=== PATIENT | female | born 1960 | race Caucasian/White ===

== ENCOUNTER 2023-08-23 09:00 | Emergency (ER) | payer OTHER ==
[~2023-08-23] VITALS: Ht 149.9 cm; Wt 69.9 kg
[~2023-08-23 09:00] MED LIST: ALBU1.25; AMOX1TAB16; ASPI81TA49 PO; BENA40TA67 PO; HYDR1POW18 PO; INSU100V27; LORA-259 PO; METF500T PO; METO50TA7 PO
[2023-08-23] MEDS ORDERED: IBUP-1955 PO (11:09)
[2023-08-23 11:50] VITALS: BP 154/74; TEMP 98.2; O2SAT 99
== END 2023-08-23 10:55 | disposition home or self-care (01) ==
LOC: ER 09:08
DX: S63.591A Other specified sprain of right wrist, initial encounter (principal); R42 Dizziness and giddiness; I10 Essential (primary) hypertension; E11.9 Type 2 diabetes mellitus without complications; F32.A Depression, unspecified; F41.9 Anxiety disorder, unspecified; Z79.82 Long term (current) use of aspirin; Z90.49 Acquired absence of other specified parts of digestive tract; Z79.899 Other long term (current) drug therapy; W18.39XA Other fall on same level, initial encounter; Y93.89 Activity, other specified; Y92.89 Other specified places as the place of occurrence of the external cause; Y99.8 Other external cause status
CPT/HCPCS: 73110; 73130-TC

== ENCOUNTER 2024-01-15 13:31 | Emergency (ER) | payer OTHER ==
[~2024-01-15] VITALS: Ht 149.9 cm; Wt 68.5 kg
[~2024-01-15 13:31] MED LIST changes: +IBUP-1955 PO
[2024-01-15 14:30] VITALS: TEMP 98.4
[2024-01-15] MEDS ORDERED: IBUP-1955 PO (15:24)
[2024-01-15] MEDS ORDERED: CYCL5TAB PO (15:24)
[2024-01-15] MEDS ORDERED: ACET-2605 PO (15:24)
[2024-01-15] MEDS ORDERED: ACETAMINOPHEN ES 500 MG TABLET ONE (15:36)
[2024-01-15] MEDS ORDERED: LIDOCAINE 5% (PATCH) 1 EA PATCH TP ONE (15:36)
[2024-01-15] MEDS ORDERED: CYCLOBENZAPRINE 10 MG TABLET ONE (15:36)
[2024-01-15] MEDS ORDERED: IBUPROFEN 600 MG TABLET ONE (15:37)
[2024-01-15] MEDS: IBUPROFEN 600 MG TABLET PO ONE (15:45)
[2024-01-15] MEDS: ACETAMINOPHEN ES 500 MG TABLET PO ONE (15:45)
[2024-01-15] MEDS: CYCLOBENZAPRINE 10 MG TABLET PO ONE (15:45)
[2024-01-15] MEDS: LIDOCAINE 5% (PATCH) 1 EA PATCH TP ONE (15:45)
[2024-01-15 16:24] VITALS: BP 132/78; O2SAT 97
== END 2024-01-15 16:25 | disposition home or self-care (01) ==
LOC: ER 13:34
DX: M54.59 Other low back pain (principal); M79.604 Pain in right leg; I10 Essential (primary) hypertension; E11.9 Type 2 diabetes mellitus without complications; F32.A Depression, unspecified; F41.9 Anxiety disorder, unspecified; Z90.49 Acquired absence of other specified parts of digestive tract; Z86.79 Personal history of other diseases of the circulatory system

== ENCOUNTER 2024-03-02 18:54 | Emergency (ER) | payer OTHER ==
[~2024-03-02] VITALS: Ht 149.9 cm; Wt 67.6 kg
[~2024-03-02 18:54] MED LIST changes: +ACET-2605 PO; +CYCL5TAB PO
[2024-03-02 19:40] LABS: BASOPHILS % (AUTO) 0.4 % (0.0-2.0); CALCIUM, SERUM 8.4 mg/dL (8.5-10.1); CARBON DIOXIDE 25 mmol/L (21-32); CHLORIDE 104 mmol/L (98-107); CREATININE 0.6 mg/dL (0.6-1.3); EOSINOPHILS # (AUTO) 0.1 K/uL (0.0-0.7); EOSINOPHILS % (AUTO) 1.8 % (0.0-6.0); GLUCOSE 186 mg/dL (74-106); HEMATOCRIT 43 % (33-45); HEMOGLOBIN 14.3 g/dL (11.5-14.8); LYMPHOCYTES # (AUTO) 1.4 K/uL (0.8-4.8); LYMPHOCYTES % (AUTO) 32.2 % (20.0-44.0); MEAN CORPUSCULAR HEMOGLOBIN 28 PG (26.0-33.0); MEAN CORPUSCULAR HGB CONC 33 g/dl (31.0-36.0); MEAN CORPUSCULAR VOLUME 84 fL (82-100); MONOCYTES # (AUTO) 0.5 K/uL (0.1-1.30); MONOCYTES % (AUTO) 10.3 % (2.0-12.0); NEUTROPHILS # (AUTO) 2.5 K/uL (1.8-8.9); NEUTROPHILS % (AUTO) 55.3 % (43.0-81.0); PLATELET COUNT (AUTO) 174 K/uL (150-450); POTASSIUM 3.6 mmol/L (3.5-5.1); RED BLOOD CELL COUNT(AUTO) 5.13 MIL/uL (4.0-5.2); RED CELL DISTRIBUTION WIDTH 13.1 % (11.5-15.0); SODIUM SERUM 138 mmol/L (136-145); UREA NITROGEN, BLOOD 18 mg/dL (7-18); WHITE BLOOD COUNT (AUTO) 4.5 K/uL (4.3-11.0)
[2024-03-02 19:53] LABS: ALANINE AMINOTRANSFERASE 15 U/L (12-78); ALBUMIN 3.7 g/dL (3.4-5.0); ALKALINE PHOSPHATASE 107 U/L (46-116); ASPARTATE AMINOTRANSFERASE 13 U/L (15-37); BILIRUBIN,DIRECT 0.1 mg/dL (0.0-0.2); BILIRUBIN,TOTAL 0.4 mg/dL (0.2-1.0); NT-PRO BNP 50 pg/mL (0-125); TOTAL PROTEIN, SERUM 7.6 g/dL (6.4-8.2)
[2024-03-02] MEDS ORDERED: BENZONATATE 100 MG CAPSULE PO ONE (20:15)
[2024-03-02] MEDS: BENZONATATE 100 MG CAPSULE PO PRN (20:16)
[2024-03-02] MEDS ORDERED: IBUPROFEN 400 MG TABLET ONE (20:16)
[2024-03-02] MEDS: IBUPROFEN 400 MG TABLET PO ONE (20:16)
[2024-03-02] MEDS ORDERED: ALBU18HF2 INH (21:25)
[2024-03-02 21:41] VITALS: BP 134/80; TEMP 98.7; O2SAT 99
== END 2024-03-02 21:42 | disposition home or self-care (01) ==
LOC: ER 18:57
DX: R05.9 Cough, unspecified (principal); R07.9 Chest pain, unspecified; R09.81 Nasal congestion; J34.89 Other specified disorders of nose and nasal sinuses; I10 Essential (primary) hypertension; E11.9 Type 2 diabetes mellitus without complications; F41.9 Anxiety disorder, unspecified; F32.A Depression, unspecified; Z90.49 Acquired absence of other specified parts of digestive tract; Z79.84 Long term (current) use of oral hypoglycemic drugs; Z86.79 Personal history of other diseases of the circulatory system
CPT/HCPCS: 36415; 71045-TC; 80048-TC; 80076-TC; 83880; 84484-TC; 85025-TC

== ENCOUNTER 2024-06-07 09:36 | Emergency (ER) | payer OTHER ==
[~2024-06-07] VITALS: Ht 149.9 cm; Wt 64.0 kg
[~2024-06-07 09:36] MED LIST changes: +ALBU18HF2 INH
[2024-06-07 10:38] LABS: BASOPHILS % (AUTO) 0.6 % (0.0-2.0); EOSINOPHILS # (AUTO) 0.2 K/uL (0.0-0.7); EOSINOPHILS % (AUTO) 2.5 % (0.0-6.0); HEMATOCRIT 42 % (33-45); HEMOGLOBIN 13.9 g/dL (11.5-14.8); LYMPHOCYTES # (AUTO) 2.2 K/uL (0.8-4.8); MEAN CORPUSCULAR HEMOGLOBIN 29 PG (26.0-33.0); MEAN CORPUSCULAR HGB CONC 33 g/dl (31.0-36.0); MEAN CORPUSCULAR VOLUME 86 fL (82-100); MONOCYTES # (AUTO) 0.4 K/uL (0.1-1.30); NEUTROPHILS # (AUTO) 3.4 K/uL (1.8-8.9); NEUTROPHILS % (AUTO) 54.9 % (43.0-81.0); PLATELET COUNT (AUTO) 224 K/uL (150-450); RED BLOOD CELL COUNT(AUTO) 4.87 MIL/uL (4.0-5.2); RED CELL DISTRIBUTION WIDTH 13.6 % (11.5-15.0); WHITE BLOOD COUNT (AUTO) 6.3 K/uL (4.3-11.0)
[2024-06-07 10:41] LABS: APPEARANCE,URINE CLEAR (CLEAR); BILIRUBIN,URINE NEGATIVE (NEGATIVE); BLOOD, URINE NEGATIVE Ery/uL (NEGATIVE); COLOR,URINE YELLOW (YELLOW); KETONES,URINE NEGATIVE (NEGATIVE); LEUKOCYTE ESTERASE ,URINE NEGATIVE (NEGATIVE); NITRITE, URINE NEGATIVE (NEGATIVE); PROTEIN,URINE NEGATIVE (NEGATIVE); UGLUCOSE 3+ mg/dL (NEGATIVE); UROBILINOGEN,URINE 0.2 EU/dL (0.2)
[2024-06-07 10:51] LABS: CALCIUM, SERUM 8.8 mg/dL (8.5-10.1); CREATININE 0.7 mg/dL (0.6-1.3); POTASSIUM 4.1 mmol/L (3.5-5.1)
[2024-06-07 10:55] VITALS: BP 115/65; O2SAT 98
[2024-06-07 10:55] LABS: ADD URINE CULTURE NO; BACTERIA,URINE Rare /HPF (None Seen); RBC,URINE 0-2 /HPF (0-2); SQUAMOUS EPITHELIAL CELL,UR Few /HPF (None Seen); WBC,URINE 0-2 /HPF (0-3)
[2024-06-07 10:57] LABS: ALBUMIN 3.8 g/dL (3.4-5.0); BILIRUBIN,DIRECT 0.1 mg/dL (0.0-0.2); BILIRUBIN,TOTAL 0.3 mg/dL (0.2-1.0); TOTAL PROTEIN, SERUM 7.4 g/dL (6.4-8.2)
== END 2024-06-07 11:48 | disposition home or self-care (01) ==
LOC: ER 09:43
DX: R10.31 Right lower quadrant pain (principal); I10 Essential (primary) hypertension; E11.9 Type 2 diabetes mellitus without complications; F41.9 Anxiety disorder, unspecified; Z79.4 Long term (current) use of insulin; Z79.84 Long term (current) use of oral hypoglycemic drugs; Z90.49 Acquired absence of other specified parts of digestive tract
CPT/HCPCS: 36415; 80048-TC; 80076-TC; 81001; 83690-TC; 85025-TC; 87086-TC

== ENCOUNTER 2024-06-21 08:59 | Emergency (ER) | payer OTHER | END 2024-06-21 09:50 | disposition left against medical advice (07) | LOC: ER 09:01 | DX: H57.10 Ocular pain, unspecified eye (principal); Z53.21 Procedure and treatment not carried out due to patient leaving prior to being seen by health care provider ==

== ENCOUNTER 2024-12-30 11:31 | Emergency (ER) | payer OTHER ==
[~2024-12-30] VITALS: Ht 149.9 cm; Wt 65.8 kg
[2024-12-30] MEDS ORDERED: ACETAMINOPHEN ES 500 MG TABLET ONE (12:33)
[2024-12-30] MEDS ORDERED: IBUPROFEN 600 MG TABLET ONE (12:34)
[2024-12-30] MEDS: ACETAMINOPHEN ES 500 MG TABLET PO ONE (12:36)
[2024-12-30] MEDS: IBUPROFEN 600 MG TABLET PO ONE (12:36)
[2024-12-30] MEDS ORDERED: IBUP-1488 PO (13:23)
[2024-12-30] MEDS ORDERED: DICL100G34 TP (13:23)
[2024-12-30 13:55] VITALS: BP 142/57; TEMP 98.2; O2SAT 99
== END 2024-12-30 13:56 | disposition home or self-care (01) ==
LOC: ER 11:36
DX: S93.401A Sprain of unspecified ligament of right ankle, initial encounter (principal); I10 Essential (primary) hypertension; E11.9 Type 2 diabetes mellitus without complications; E78.5 Hyperlipidemia, unspecified; F41.9 Anxiety disorder, unspecified; F32.A Depression, unspecified; Z79.84 Long term (current) use of oral hypoglycemic drugs; Z90.49 Acquired absence of other specified parts of digestive tract; X50.1XXA Overexertion from prolonged static or awkward postures, initial encounter; Y93.89 Activity, other specified; Y92.89 Other specified places as the place of occurrence of the external cause; Y99.8 Other external cause status
CPT/HCPCS: 73610-TC